=== PATIENT | male | born 1955 | race Caucasian/White ===

== ENCOUNTER 2020-06-13 08:14 | Day surgery (SDC) | payer BC ==
[~2020-06-13 08:14] MED LIST: Lactated Ringers 1,000 ML IV SCH
[2020-06-13] MEDS ORDERED: fentaNYL 100 MCG/2 ML SDV ONE (08:32)
[2020-06-13] MEDS ORDERED: Propofol 200 MG/20 ML SDV ONE ×3 (08:32→10:44)
[2020-06-13] MEDS ORDERED: Promethazine Topical Gel 0.5 ML Syringe TOP ONE (11:16)
[2020-06-13] MEDS ORDERED: Ondansetron 8 MG in Sodium Chloride 0.9% 100 ML IV PRN (11:17)
[2020-06-13] MEDS ORDERED: Ondansetron 4 MG/2 ML SDV IVPUSH PRN (11:22)
[2020-06-13] MEDS: Promethazine 12.5 MG in Sodium Chloride 0.9% 100 ML IV ONE ×2 (12:38→13:45)
--- NOTE | 2020-06-13 15:02 | OR ---
DATE OF SURGERY: 06/13/2020. REFERRING PROVIDER: Lainey Bardales DO PRE-OPERATIVE DIAGNOSES: 1. History of colon polyps. The patient had previous colonoscopy in 08/2019 and had a 9 mm cecal polyp, removed with cold snare, and hemostatic clip placed. He also had a 13 mm polyp in the sigmoid colon, which was sessile in nature and removed with piecemeal technique using hot snare. Area was tattooed and we are rechecking this. No known family history of colon cancer. 2. Hemostatic clips were placed at site of polypectomy within the sigmoid colon. POST-OPERATIVE DIAGNOSES: 1. Five small colon polyps removed, all using cold forceps. a. 3 mm and 2 mm polyps at 100 cm (ascending colon). b. 2 mm polyp at 80 cm. c. 3 mm polyp at 40 cm. d. 2 mm rectal polyp. 2. Moderate left-sided diverticulosis. 3. Tortuous colon. PROCEDURE: Colonoscopy with polypectomy x5 using cold forceps. SURGEON: Jeovany Silva M.D. ANESTHESIA: Monitored anesthesia care. BOWEL PREP: Fair to good. Bon is a 64-year-old male who was brought to the endoscopy suite after discussing risks and benefits of the procedure. Informed consent was obtained for conscious sedation and colonoscopy with or without biopsy and/or polypectomy. We also discussed possibility of missed lesions. Pre-procedure exam was unremarkable. IV, oxygen, and monitors were placed. The patient was placed in the left lateral decubitus position. Sedation was administered and a digital rectal exam was performed and unremarkable. Colonoscope was passed into the rectum and slowly advanced all the way to the cecum. The patient did have tortuous colon as well as somewhat of a tight fit through the sigmoid colon. Suspicious for previous episodes of diverticulitis to that area. Cecum was viewed and photographed. There was hemostatic clip still in place within the cecum. I did not see any evidence for a residual worrisome tissue at that site. The colonoscope was slowly withdrawn and the mucosa was closed observed in a direct circumferential manner. The ascending colon was remarkable for 3 mm and 2 mm polyps at 100 cm, both removed using cold forceps. The transverse colon was unremarkable. The left colon revealed 2 mm polyp at 80 cm. The tattooed area seemed to range from about 70 to 80 cm from the anal verge. The descending colon was . The sigmoid colon revealed moderate diverticulosis. There was 3 mm polyp at 40 cm, removed using cold forceps. Retroflexion was performed and rectal mucosa revealed 2 mm rectal polyp, removed using cold forceps. Scope was removed. The patient tolerated the procedure well. The patient was monitored until that baseline status. Discharge instructions were reviewed and the patient was discharged in good condition. COMPLICATIONS: None, although patient did have some nausea after the procedure. TOTAL TIME: 52 minutes. ESTIMATED BLOOD LOSS: About 1 mL. RECOMMENDATIONS/FOLLOW-UP: We will await results of path report to determine ideal followup interval. I will have the patient resume his aspirin and warfarin tomorrow. I would like to kindly thank Lainey Bardales for this referral. DMB: 06/13/2020 11:23:48 MODL: 06/13/2020 14:00:24 /[id number]
== END 2020-06-13 14:25 | disposition home or self-care (01) ==
LOC: VM.SDS 08:14
PROVIDERS: ATTEND Family Medicine
DX: Z12.11 Encounter for screening for malignant neoplasm of colon (principal); D12.2 Benign neoplasm of ascending colon; K62.1 Rectal polyp; D12.5 Benign neoplasm of sigmoid colon; K57.30 Diverticulosis of large intestine without perforation or abscess without bleeding; I48.20 Chronic atrial fibrillation, unspecified; I48.91 Unspecified atrial fibrillation; I27.20 Pulmonary hypertension, unspecified; J44.9 Chronic obstructive pulmonary disease, unspecified; G47.33 Obstructive sleep apnea (adult) (pediatric); E66.3 Overweight; F41.9 Anxiety disorder, unspecified; E03.4 Atrophy of thyroid (acquired); E78.00 Pure hypercholesterolemia, unspecified; Z01.812 Encounter for preprocedural laboratory examination; Z20.828 Contact with and (suspected) exposure to other viral communicable diseases; Z98.890 Other specified postprocedural states; Z79.01 Long term (current) use of anticoagulants; Z79.899 Other long term (current) drug therapy; Z79.82 Long term (current) use of aspirin; Z88.8 Allergy status to other drugs, medicaments and biological substances; Z87.891 Personal history of nicotine dependence; Z68.31 Body mass index [BMI] 31.0-31.9, adult
CPT/HCPCS: 00811; 36415; 45380; 85610; 87635; J2405; J2550; J2704; J3010; J7120; U0002

== ENCOUNTER 2022-05-20 10:05 | Emergency (ER) | payer BC, MEDICARE ==
[2022-05-20] MEDS ORDERED: Sodium Chloride 0.9% 10 ML Syringe FLUSH PRN (10:26)
[2022-05-20] MEDS ORDERED: Metoprolol Tartrate 5 MG/5 ML SDV IVPUSH ONE ×2 (10:28→11:06)
[2022-05-20 10:56] LABS: PTT,PARTIAL THROMBOPLSTIN TIME 47.4 SEC (20.5-30.9)
[2022-05-20 11:10] LABS: CHLORIDE,CL 102 mmol/L (98-107); SODIUM,NA 139 mmol/L (136-145)
[2022-05-20 11:12] LABS: ANION GAP 11.9 mmol/L (5-15); ESTIMATED GFR 51 mL/min (>=60)
[2022-05-20 11:24] LABS: CORONAVIRUS COVID-19 NAA NEGATIVE (NEGATIVE)
[2022-05-20 11:25] LABS: RESPIRATORY SYNCYTIAL VIR NAA NEGATIVE (NEGATIVE)
== END 2022-05-20 11:58 | disposition home or self-care (01) ==
LOC: VM.ED 10:05
DX: I48.91 Unspecified atrial fibrillation (principal); R79.1 Abnormal coagulation profile; I44.7 Left bundle-branch block, unspecified; I25.10 Atherosclerotic heart disease of native coronary artery without angina pectoris; E78.00 Pure hypercholesterolemia, unspecified; J44.9 Chronic obstructive pulmonary disease, unspecified; E03.9 Hypothyroidism, unspecified; I50.9 Heart failure, unspecified; I25.2 Old myocardial infarction; E66.9 Obesity, unspecified; Z88.8 Allergy status to other drugs, medicaments and biological substances; Z79.01 Long term (current) use of anticoagulants; Z79.899 Other long term (current) drug therapy; Z20.822 Contact with and (suspected) exposure to COVID-19
CPT/HCPCS: 0241U; 71045; 80053; 80307; 83735; 83880; 84100; 84443; 84484; 85025; 85610; 85730; 86140; 93005; 96374; 96376; 99285-25; J3490

== ENCOUNTER 2023-10-14 08:31 | Day surgery (SDC) | payer BC, MEDICARE ==
[2023-10-14] MEDS: Ondansetron 4 MG/2 ML SDV IVPUSH PRN (08:47)
[2023-10-14] MEDS: Lactated Ringers 1,000 ML IV SCH (08:47)
[2023-10-14] MEDS ORDERED: droPERidol 5 MG/2 ML SDV IVPUSH PRN (09:27)
[2023-10-14] MEDS ORDERED: Propofol 200 MG/20 ML SDV ONE ×3 (09:45→10:50)
[2023-10-14] MEDS ORDERED: fentaNYL 100 MCG/2 ML SDV ONE (09:45)
[2023-10-14] MEDS ORDERED: Dexamethasone 10 MG/ML SDV ONE (09:46)
== END 2023-10-14 12:25 | disposition home or self-care (01) ==
LOC: VM.SDS 08:31
PROVIDERS: ATTEND Family Medicine
DX: D12.6 Benign neoplasm of colon, unspecified (principal); K62.1 Rectal polyp; K57.30 Diverticulosis of large intestine without perforation or abscess without bleeding; J44.9 Chronic obstructive pulmonary disease, unspecified; I50.9 Heart failure, unspecified; E03.9 Hypothyroidism, unspecified; I25.10 Atherosclerotic heart disease of native coronary artery without angina pectoris; I11.0 Hypertensive heart disease with heart failure; I48.91 Unspecified atrial fibrillation; Z79.01 Long term (current) use of anticoagulants; Z79.899 Other long term (current) drug therapy; Z98.890 Other specified postprocedural states; Z79.890 Hormone replacement therapy; Z86.010 Personal history of colon polyps
CPT/HCPCS: 00811; J1100; J2405; J2704; J3010; J7120

== ENCOUNTER 2024-07-12 21:39 | Emergency (ER) | payer BC, MEDICARE ==
[2024-07-12] MEDS ORDERED: Sodium Chloride 0.9% 10 ML Syringe FLUSH PRN (21:48)
[2024-07-12 22:11] LABS: HEMATOCRIT 51.5 % (40.0-52.0); HEMOGLOBIN 18.2 g/dL (14.0-18.0); MEAN CORPUSCULAR HGB CONC 35.3 g/dL (32.0-36.0); MEAN CORPUSCULAR VOLUME 87.7 fL (78.0-93.0); PLATELET COUNT,PLT 284 x10^3/uL (130-400); RED BLOOD CELL COUNT 5.87 x10^6/uL (4.5-6.0); WHITE BLOOD CELL COUNT,WBC 16.7 x10^3/uL (4.0-10.0)
[2024-07-12 22:18] LABS: BAND PERCENT MAN 3 % (0-6); LYMPHOCYTES ABSOLUTE MAN 2.5 x10^3/uL (1.0-4.8); LYMPHOCYTES PERCENT MAN 15 % (25-50); MONOCYTES ABSOLUTE MAN 1.3 x10^3/uL (0.0-0.8); MONOCYTES PERCENT MAN 8 % (2-11); NEUTROPHILS ABSOLUTE MAN 12.9 x10^3/uL (1.8-7.7); PLATELET COUNT ESTIMATE ADEQUATE; SEG NEUTROPHILS PERCENT MAN 74 % (50-80)
[2024-07-12] MEDS: Albuterol/Ipratropium 3.0-0.5 MG/3 ML Neb Soln NEB ONE (22:18)
[2024-07-12 22:30] LABS: PROTHROMBIN TIME 49.9 SEC (8.9-11.5)
[2024-07-12 22:31] LABS: INR 5.4 (0.9-1.1)
[2024-07-12 22:33] LABS: A/G RATIO 0.81; ALANINE AMINOTRANSFERASE,ALT 22 U/L (16-63); ALBUMIN 3.5 g/dL (3.4-5.0); ALKALINE PHOSPHATASE 74 U/L (46-116); ASPARTATE AMNIOTRANSFERASE,AST 22 U/L (15-37); BILIRUBIN TOTAL 0.9 mg/dL (0.2-1.0); BLOOD UREA NITROGEN,BUN 36 mg/dL (7-18); CALCIUM 9.2 mg/dL (8.5-10.1); CARBON DIOXIDE,CO2 26 mmol/L (21-32); CHLORIDE,CL 96 mmol/L (98-107); CREATININE 1.6 mg/dL (0.70-1.30); GLUCOSE RANDOM 116 mg/dL (70-99); POTASSIUM,K 4.1 mmol/L (3.5-5.1); PROTEIN TOTAL,TP 7.8 g/dL (6.4-8.2); SODIUM,NA 135 mmol/L (136-145)
[2024-07-12 22:34] LABS: ANION GAP 17.1 mmol/L (5-15); ESTIMATED GFR 46 mL/min (>=60)
[2024-07-12] MEDS: Take Home: Albuterol/Ipratropium 3.0-0.5 MG/3 ML Neb Soln, 4 Neb Pack NEB ONE (23:33)
[2024-07-12] MEDS: Doxycycline Monohydrate 100 MG Cap PO ONE (23:33)
[2024-07-12] MEDS: predniSONE 20 MG Tab PO SCH (23:37)
[2024-07-12] MEDS: predniSONE 20 MG Tab ONE (23:53)
[2024-07-13] MEDS ORDERED: predniSONE 20 MG Tab PO ONE (23:33)
== END 2024-07-12 23:50 | disposition home or self-care (01) ==
LOC: VM.ED 21:39
DX: J44.1 Chronic obstructive pulmonary disease with (acute) exacerbation (principal); I48.91 Unspecified atrial fibrillation; I25.10 Atherosclerotic heart disease of native coronary artery without angina pectoris; I11.0 Hypertensive heart disease with heart failure; I50.9 Heart failure, unspecified; I25.2 Old myocardial infarction; R79.1 Abnormal coagulation profile; E03.9 Hypothyroidism, unspecified; Z88.8 Allergy status to other drugs, medicaments and biological substances; Z79.51 Long term (current) use of inhaled steroids; Z79.890 Hormone replacement therapy; Z79.01 Long term (current) use of anticoagulants; Z79.82 Long term (current) use of aspirin; Z79.899 Other long term (current) drug therapy; Z90.49 Acquired absence of other specified parts of digestive tract
CPT/HCPCS: 36415; 71046; 80053; 84484; 85025; 85610; 87428-QW; 93010; 94640; 99284; 99285; A9270-GY; J7512; J7620-GY